=== PATIENT | male | born 1960 | race Caucasian/White ===

== ENCOUNTER 2016-05-08 05:46 | Emergency (ER) | payer OTHER ==
--- NOTE | 2016-05-08 06:35 | ED CLINICAL REPORT ---
Clinical Report - Physicians/Mid Levels [facility] [address] [place] [address] 05/08/2016 5:49 Patient: DANITZA CHAUHAN Time Seen: 06:01; initial patient contact. Arrived- By ambulance. Historian- patient. HISTORY OF PRESENT ILLNESS Chief Complaint: "FLU". This started about 5 days ago and is still present. No fever, difficulty breathing, chest discomfort, nausea or vomiting. No diarrhea or sputum production. He has had a cough, sinus drainage, nasal congestion, a sore throat and chills. He has had muscle aches and a nasal discharge. No known contact with a sick individual. Similar symptoms previously: None. Recent medical care: Not recently seen/assessed. REVIEW OF SYSTEMS The patient has had fatigue and sinus pain. All systems otherwise negative, except as recorded above. PAST HISTORY Arthritis. Hepatitis. Cancer. Depression. Anxiety Reaction. SURGERIES: Endoscopy. Surgery for CA. SOCIAL HISTORY Current every day smoker. History of drug use: marijuana. ADDITIONAL NOTES The nursing notes have been reviewed with agreement regarding the chief complaint, PMH and patient medications and allergies. PHYSICAL EXAM Vital Signs: 05/08/2016 05:54 BP: 135/74. HR: 85. RR: 17. O2 saturation: 96%. Temp: 98.8 F. Pain level now: 8/10. Have been reviewed as normal. Appearance: Alert. No acute distress. Eyes: Eyes normal inspection. ENT: Mild generalized pharyngeal erythema with right tonsillar swelling and left tonsillar swelling. No muffled or hoarse voice. Neck: Normal inspection. Neck supple. CVS: Normal heart rate and rhythm. Heart sounds normal. Respiratory: No respiratory distress. Breath sounds normal. Abdomen: Soft and nontender. Skin: Normal skin color. No rash. Extremities: No calf tenderness. No lower extremity edema. Neuro: Oriented X 3. LABS, X-RAYS, AND EKG Laboratory Tests: Culture, Strep Screen: (ZULEMA: 05/08/2016 06:00) ( MsgRcvd 05/08/2016 06:15) Final results Test Result Flag Units (Reference) RAPID STREP SCREEN - THROAT CALLED TO: CURLY ED RN -- DATE: 05/08/16 POSITIVE SCREEN: RAPID STREP SCREEN: POSITIVE FOR GROUP A STREP Rapid Influenza Screen: (ZULEMA: 05/08/2016 06:00) ( MsgRcvd 05/08/2016 06:19) Final results SPECIMEN DESCRIPTION: ... Test Result Flag Units (Reference) RAPID INFLUENZA SCREEN CALLED TO: NA -- DATE: 05/08/16 INFLUENZA A: NEGATIVE SCREEN FOR INFLUENZA A INFLUENZA B: NEGATIVE SCREEN FOR INFLUENZA B . PROGRESS AND PROCEDURES Disposition: Discharged home in good condition. Condition: good. CLINICAL IMPRESSION Acute streptococcal pharyngitis INSTRUCTIONS Alternate Tylenol (Acetaminophen) or Motrin (Ibuprofen) for fever. Take according to label instructions. Your Current Medications: CONTINUE TAKING THE FOLLOWING MEDICATIONS: Acitretin Oral : Capsule 10 mg, 1 capsule daily. Ibuprofen Oral. Meloxicam Oral : Tablet 15 mg, 1 tablet daily. Naproxen Oral. Omeprazole Oral : 20 mg daily. Sertraline HCl Oral : 150mg daily. Prescription Medications: Penicillin V 500 mg: take 1 tab orally every 12 hours for 10 days. Dispense twenty (20). No refills. Follow-up: Follow up with your doctor in about two days. Call for an appointment. Screening today revealed the patient's blood pressure to be in the pre-hypertensive range. The patient should follow up with a primary care provider for blood pressure management. (Electronically signed by Bib Cooper Dr. 05/08/2016 6:48)
--- NOTE | 2016-05-08 06:35 | ED NURSING NOTES ---
Clinical Report - Nurses [facility] [address] [place] [address] 05/08/2016 5:49 Patient: DANITZA CHAUHAN TRIAGE Triage time 05:54. Acuity: LEVEL 3. Chief Complaint: MUSCLE ACHES, HEADACHE and COUGH. 06:07. Alert. SEPSIS SCREEN: Sepsis Screen. Negative (no infection suspected/documented). RICK COMA SCORE: Rick Coma Scale: 14- eyes open to voice (3); best verbal response- oriented x 4 (5); best motor response- obeys commands (6). --06:07 Gregorio Nuñez R.N. 05:54 05/08/16. BP: 135/74. HR: 85. RR: 17. O2 saturation: 96%. Temp: 98.8 F (oral). Pain level now: 810. --06:07 Gregorio Nuñez R.N. Weight: 104.3 kg estimated. Height/Length: 70.5 inches Per Patient. BMI: 32.6. --05:57 Gregorio Nuñez R.N. Medications Omeprazole Oral 20 mg, daily. --06:01 Gregorio Nuñez R.N. Meloxicam Oral (Tablet 15 mg) 1 tablet, daily. --06:01 Gregorio Nuñez R.N. Naproxen Oral. --06:01 Gregorio Nuñez R.N. Ibuprofen Oral. --06:02 Gregorio Nuñez R.N. Sertraline HCl Oral 150mg , daily. --06:02 Gregorio Nuñez R.N. Acitretin Oral (Capsule 10 mg) 1 capsule, daily. --06:03 Gregorio Nuñez R.N. Allergies No Known Drug Allergy. --06:03 Gregorio Nuñez R.N. Medication/allergy information source: the patient and patient's pill bottles. --06:07 Gregorio Nuñez R.N. History Arrived by private vehicle. Historian: patient. Unaccompanied. ( Patient masked on arrival). Onset. (4 - 5 days ago). PAST MEDICAL HX: Immunizations: up-to-date. SOCIAL HX: Current every day light tobacco smoker- less than 1/2 a pack per day. Occasional alcohol use. History of occasional drug use: marijuana. No infectious disease exposure. ABUSE ASSESSMENT: No report of abuse. FALL RISK ASSESSMENT: Fall risk assessment completed. No fall risk identified. NUTRITIONAL RISK ASSESSMENT: The nutritional risk assessment revealed no deficiencies. FUNCTIONAL ASSESSMENT: Functional assessment: no impairments noted. LEARNING NEEDS ASSESSMENT: The learning needs assessment revealed no barriers. SKIN INTEGRITY ASSESSMENT: Skin integrity risk assessment completed. No skin integrity risk identified. --06:07 Gregorio Nuñez R.N. PROBLEMS: Arthritis. Hepatitis. Cancer. Depression. Anxiety Reaction. --06:06 Gregorio Nuñez R.N. ADDITIONAL SURGERIES: Endoscopy. Surgery for CA . --06:06 Gregorio Nuñez R.N. Interventions ID band on patient. To treatment room. --06:07 Gregorio Nuñez R.N. PHYSICAL ASSESSMENT 05:59. To room via stretcher. Patient gowned. GENERAL / NEURO / PSYCH: Alert. Oriented X 4. HEENT: No facial asymmetry noted. Mucous membranes are pink. RESPIRATORY: Respirations not labored. SKIN: Skin intact. Skin is warm and dry. Normal skin turgor. --05:59 Gregorio Nuñez R.N. NURSING PROGRESS NOTES 05:55. Patient ID band checked for patient name and birthdate: patient confirmed. Flu swab obtained via nasal pharyngeal swab. Labeled in the presence of the patient and sent to lab (by Dr. Cooper). Patient ID band checked for patient name and birthdate: patient confirmed. Throat swab obtained for rapid strep; labeled in the presence of the patient and sent to lab (by Dr. Cooper). --05:58 Gregorio Nuñez R.N. 05:58. Head of bed elevated. Two patient identifiers checked. Call light placed in reach. Side rails up x 2. Bed placed in lowest position. Brakes of bed on. Patient ready for evaluation- chart flagged. --05:58 Gregorio Nuñez R.N. 07:00 05/08/2016 Ibuprofen PO 600 mg given. Allergies verified and confirmed 5 rights. --07:13 Gregorio Nuñez R.N. DISPOSITION / DISCHARGE 06:49. Condition at departure: stable. ( Patient is upset because we don't have a way for him to get home pt stated Ryan pays for a taxi). No learning barriers present. Discharge instructions provided and reviewed with the patient. Reviewed medication(s) side effects, precautions, dosing and course information. Prescription(s) given to the patient. Patient verbalized understanding. Written instructions provided in Setswana. The patient was discharged home and unaccompanied at time of discharge. He left the Emergency Department ambulatory. FALL RISK ASSESSMENT: Fall risk assessment completed. No fall risk identified. --06:49 Gregorio Nuñez R.N. 06:42 05/08/16. BP: 140/78. HR: 90. RR: 16. O2 saturation: 96% on room air. Pain level now: 7/10. --06:49 Gregorio Nuñez R.N. 06:49 Patient using ED phone to call for a ride. --06:50 Gregorio Nuñez R.N. Departure time: 07:04. --07:14 Gregorio Nuñez R.N. Locked/Released at 05/10/2016 10:32 by Eva Finn R.N.
--- NOTE | 2016-05-08 06:35 | ED ORDER SUMMARY ---
..... Patient: DANITZA CHAUHAN OrderSheet [facility] VisitID: [id number] [place] [address] 55y, M Registration Date/Time: 05/08/2016 ORDER SHEET Weight: 104.3 kg (estimated) Allergies: No Known Drug Allergy GENERAL ORDERS: Rapid Influenza Screen (Nasal Pharyngeal) (...) Urgent (05:59 05/08/2016 Halle Paul) (6[facility]) Culture, Strep Screen Urgent (05:59 05/08/2016 Halle Paul) (6:02 [facility] Wildlife Photographer) MEDICATION ORDERS: Ibuprofen PO 600 mg (NOW) (07:11 05/08/2016 Dee RRenny verbal order read back to Halle Paul) (7:13 Dee RRenny) IV FLUIDS: ORDER SHEET NOTES: [Electronically signed by Bib Cooper Dr. (06:48 05/08/2016)] [Electronically signed by Eva Finn R.N. (10:32 05/10/2016)] [Electronically locked/signed by Eva Finn R.N. (10:32 05/10/2016)]
--- NOTE | 2016-05-08 06:35 | ED ORDER SUMMARY ---
..... Patient: DANITZA CHAUHAN OrderSheet [facility] VisitID: [id number] [place] [address] 55y, M Registration Date/Time: 05/08/2016 ORDER SHEET Weight: 104.3 kg (estimated) Allergies: No Known Drug Allergy GENERAL ORDERS: Rapid Influenza Screen (Nasal Pharyngeal) (...) Urgent (05:59 05/08/2016 Halle Paul) ([facility]) Culture, Strep Screen Urgent (05:59 05/08/2016 Halle Paul) (6:02 [facility] Manager Of International) MEDICATION ORDERS: Ibuprofen PO 600 mg (NOW) (07:11 05/08/2016 Dee RRenny verbal order read back to Halle Paul) (7:13 Dee RRenny) IV FLUIDS: ORDER SHEET NOTES: [Electronically signed by Bib Cooper Dr. (06:48 05/08/2016)] [Electronically signed by Eva Finn R.N. (10:32 05/10/2016)] [Electronically locked/signed by Eva Finn R.N. (10:32 05/10/2016)]
--- NOTE | 2016-05-10 10:33 | ED MED RECONCILIATION SUMMARY ---
Patient: DANITZA CHAUHAN Medication Reconciliation Report [facility] VisitID: [id number] [address] [place] [address] 55y, M Registration Date/Time: 05/08/2016 Weight: 104.3 kg Height/Length: 60 in. BMI: 32.6 ALLERGIES: No Known Drug Allergy The patient's Home Medications are listed below: CONTINUE TAKING THE FOLLOWING MEDICATIONS: Acitretin Oral (10 mg) 1 capsule, daily Ibuprofen Oral Meloxicam Oral (15 mg) 1 tablet, daily Naproxen Oral Omeprazole Oral 20 mg, daily Sertraline HCl Oral 150mg , daily The source(s) of the original Home Medication information: patient patient's pill bottles The following Medications were given to the patient in the Emergency Department: Ibuprofen [PO] PO 600 mg, administered: 05/08/2016 7:00:00 AM The following Medications were prescribed to the patient: Penicillin V 500 mg: take 1 tab orally every 12 hours for 10 days. Dispense twenty (20). No refills. -- Bib Cooper Dr.
--- NOTE | 2016-05-10 10:33 | ED MED RECONCILIATION SUMMARY ---
Patient: DANITZA CHAUHAN Medication Reconciliation Report [facility] VisitID: [id number] [address] [place] [address] 55y, M Registration Date/Time: 05/08/2016 Weight: 104.3 kg Height/Length: 60 in. BMI: 32.6 ALLERGIES: No Known Drug Allergy The patient's Home Medications are listed below: CONTINUE TAKING THE FOLLOWING MEDICATIONS: Acitretin Oral (10 mg) 1 capsule, daily Ibuprofen Oral Meloxicam Oral (15 mg) 1 tablet, daily Naproxen Oral Omeprazole Oral 20 mg, daily Sertraline HCl Oral 150mg , daily The source(s) of the original Home Medication information: patient patient's pill bottles The following Medications were given to the patient in the Emergency Department: Ibuprofen [PO] PO 600 mg, administered: 05/08/2016 7:00:00 AM The following Medications were prescribed to the patient: Penicillin V 500 mg: take 1 tab orally every 12 hours for 10 days. Dispense twenty (20). No refills. -- Bib Cooper Dr.
--- NOTE | 2016-05-10 10:33 | ED MAR SUMMARY ---
..... Medication Administration Record [facility] [address] [place] [address] Patient: DANITZA CHAUHAN Visit ID: [id number] 55y, M Weight: 104.3 kg Height/Length: 70.5 in BMI: 32.6 ALLERGIES: No Known Drug Allergy Given 07:00 05/08/2016 Gregorio Nuñez RBradenNBraden Medication Administered: IBUPROFEN [PO], Dose: 600 mg PO. Medication Ordered: Ibuprofen PO 600 mg (NOW).
--- NOTE | 2016-05-10 10:33 | ED DISCHARGE INSTRUCTIONS ---
Patient: GISSEL DANITZA General Instructions [facility] VisitID: [id number] [place] [address] 55y, M Registration Date/Time: 05/08/2016 Acute streptococcal pharyngitis INSTRUCTIONS Alternate Tylenol (Acetaminophen) or Motrin (Ibuprofen) for fever. Take according to label instructions. Your Current Medications: CONTINUE TAKING THE FOLLOWING MEDICATIONS: Acitretin Oral : Capsule 10 mg, 1 capsule daily. Ibuprofen Oral. Meloxicam Oral : Tablet 15 mg, 1 tablet daily. Naproxen Oral. Omeprazole Oral : 20 mg daily. Sertraline HCl Oral : 150mg daily. Prescription Medications: Penicillin V 500 mg: take 1 tab orally every 12 hours for 10 days. Dispense twenty (20). No refills. Follow-up: Follow up with your doctor in about two days. Call for an appointment. Screening today revealed the patient's blood pressure to be in the pre-hypertensive range. The patient should follow up with a primary care provider for blood pressure management. ADDITIONAL INFORMATION Pharyngitis: Strep [Confirmed] Your test for strep throat was positive. Strep throat is a contagious illness. It is spread by coughing, kissing or by touching others after touching your mouth or nose. Symptoms include throat pain which is worse with swallowing, aching all over, headache and fever. You will be treated with an antibiotic which should make you start to feel better within 1-2 days. Home Care: Rest at home and drink plenty of fluids to avoid dehydration. No school or work for the first two days on antibiotics. You will not be contagious after this time and if you are feeling better, you can return to school or work. Take your antibiotics for a full 10 days, even if you feel better after the first few days of treatment. This is very important to prevent heart or kidney disease that can result as a complication of untreated strep throat infection. Children: Use acetaminophen (Tylenol) for fever, fussiness or discomfort. In infants over six months of age, you may use ibuprofen (Children's Motrin) instead of Tylenol. [NOTE: If your child has chronic liver or kidney disease or ever had a stomach ulcer or GI bleeding, talk with your doctor before using these medicines.] (Aspirin should never be used in anyone under 18 years of age who is ill with a fever. It may cause severe liver damage.)Adults: You may use acetaminophen (Tylenol) or ibuprofen (Motrin, Advil) to control pain or fever, unless another medicine was prescribed for this. [NOTE: If you have chronic liver or kidney disease or ever had a stomach ulcer or GI bleeding, talk with your doctor before using these medicines.] Throat lozenges or sprays (Chloraseptic and others) will reduce pain. Gargling with warm salt water will also reduce throat pain. Dissolve 1/2 teaspoon of salt in 1 glass of warm water. This is especially useful just before meals. Follow Up with your doctor or as directed by our staff if you are not improving over the next week. Get Prompt Medical Attention if any of the following occur: Fever of 100.4F (38C) oral or higher, not better with fever medication New or worsening ear pain, sinus pain or headache Painful lumps in the back of your neck Unable to swallow liquids or open your mouth wide due to throat pain Trouble breathing or noisy breathing Muffled voice New rash Fever Control (Adult) A fever is a natural reaction of the body to an illness. In most cases, the temperature itself is not harmful. It actually helps the body fight infections. A fever does not need to be treated unless you feel very uncomfortable. Home Care If you feel warm, check your temperature. If you feel very uncomfortable and your temperature is at or higher than 100.4F (38C) oral, you may take acetaminophen (Tylenol) every 4 to 6 hours. If you cant take or keep down oral medicine, ask your pharmacist for Tylenol suppositories, which you can get without a prescription. If the fever does not respond to acetaminophen within 1 hour, take ibuprofen (Advil or Motrin). If this works, keep taking the ibuprofen every 6 to 8 hours. Note: If you have chronic liver or kidney disease or ever had a stomach ulcer or GI bleeding, talk with your doctor before using these medications. If either medication alone does not keep the fever down, you may alternate the two medicines every 3 to 4 hours, only if your healthcare provider has instructed you to do so. For example, take Motrin then wait 3 hours, take Tylenol then wait 3 hours, take Motrin, and so on. Follow your healthcare providers instructions exactly. Clothing: Keep clothing light because excess body heat is lost through the skin. The fever will go up if you wear extra layers or wrap in blankets. Fluids: Fever causes the body to lose water through evaporation. Drink plenty of fluids such as water, juice, clear sodas, elizabeth sabrina, or lemonade. Do not use aspirin in anyone under 18 years of age who is ill with a fever. It can cause severe liver damage. Follow Up with your doctor or as advised by our staff if you do not get better after 48 hours. Get Prompt Medical Attention if any of the following occur: Fever does not get better after taking fever medication Fast or difficult breathing Earache, sinus pain, stiff or painful neck, headache, repeated diarrhea or vomiting You feel unusually irritable, drowsy, or confused A rash appears You feel weak or dizzy, or that you might faint Penicillin V Potassium Oral tablet What is this medicine? PENICILLIN V (pen i SILL in V) is a penicillin antibiotic. It is used to treat certain kinds of bacterial infections. It will not work for colds, flu, or other viral infections. How should I use this medicine? Take this medicine by mouth with a full glass of water. Follow the directions on the prescription label. Take your medicine at regular intervals. Do not take your medicine more often than directed. Take all of your medicine as directed even if you think your are better. Do not skip doses or stop your medicine early. Talk to your check examiner regarding the use of this medicine in children. While this drug may be prescribed for selected conditions, precautions do apply. What side effects may I notice from receiving this medicine? Side effects that you should report to your doctor or health day care home mother as soon as possible: allergic reactions like skin rash or hives, swelling of the face, lips, or tongue breathing problems fever new symptoms of infection redness, blistering, peeling or loosening of the skin, including inside the mouth unusually weak or tired Side effects that usually do not require medical attention (report to your doctor or health day care home mother if they continue or are bothersome): diarrhea headache nausea, vomiting sore mouth or tongue stomach upset What may interact with this medicine? control pills methotrexate other antibiotics probenecid some vaccines What if I miss a dose? If you miss a dose, take it as soon as you can. If it is almost time for your next dose, take only that dose. Do not take double or extra doses. Where should I keep my medicine? Keep out of the reach of children. Store at room temperature between 15 and 30 degrees C (59 and 86 degrees F). Keep container tightly closed. Throw away any unused medicine after the expiration date. What should I tell my health care provider before I take this medicine? They need to know if you have any of these conditions: asthma bowel disease, like colitis eczema kidney disease an unusual or allergic reaction to penicillin, cephalosporins, other antibiotics or medicines, foods, tartrazine or other dyes, or preservatives or trying to get breast-feeding What should I watch for while using this medicine? Tell your doctor or health day care home mother if your symptoms do not improve. Do not treat diarrhea with over the counter products. Contact your doctor if you have diarrhea that lasts more than 2 days or if it is severe and watery. If you have diabetes, you may get a false-positive result for sugar in your urine. Check with your doctor or health day care home mother. control pills may not work properly while you are taking this medicine. Talk to your doctor about using an extra method of control. You have been given the following additional information: Pharyngitis, Strep (Confirmed) Fever Control (Adult) Penicillin V Potassium Oral tablet (Electronically signed by Bib Cooper Dr. 05/08/2016 6:48)
--- NOTE | 2016-05-10 10:33 | ED DISCHARGE INSTRUCTIONS ---
Patient: GISSEL DANITZA General Instructions [facility] VisitID: [id number] [place] [address] 55y, M Registration Date/Time: 05/08/2016 Acute streptococcal pharyngitis INSTRUCTIONS Alternate Tylenol (Acetaminophen) or Motrin (Ibuprofen) for fever. Take according to label instructions. Your Current Medications: CONTINUE TAKING THE FOLLOWING MEDICATIONS: Acitretin Oral : Capsule 10 mg, 1 capsule daily. Ibuprofen Oral. Meloxicam Oral : Tablet 15 mg, 1 tablet daily. Naproxen Oral. Omeprazole Oral : 20 mg daily. Sertraline HCl Oral : 150mg daily. Prescription Medications: Penicillin V 500 mg: take 1 tab orally every 12 hours for 10 days. Dispense twenty (20). No refills. Follow-up: Follow up with your doctor in about two days. Call for an appointment. Screening today revealed the patient's blood pressure to be in the pre-hypertensive range. The patient should follow up with a primary care provider for blood pressure management. ADDITIONAL INFORMATION Pharyngitis: Strep [Confirmed] Your test for strep throat was positive. Strep throat is a contagious illness. It is spread by coughing, kissing or by touching others after touching your mouth or nose. Symptoms include throat pain which is worse with swallowing, aching all over, headache and fever. You will be treated with an antibiotic which should make you start to feel better within 1-2 days. Home Care: Rest at home and drink plenty of fluids to avoid dehydration. No school or work for the first two days on antibiotics. You will not be contagious after this time and if you are feeling better, you can return to school or work. Take your antibiotics for a full 10 days, even if you feel better after the first few days of treatment. This is very important to prevent heart or kidney disease that can result as a complication of untreated strep throat infection. Children: Use acetaminophen (Tylenol) for fever, fussiness or discomfort. In infants over six months of age, you may use ibuprofen (Children's Motrin) instead of Tylenol. [NOTE: If your child has chronic liver or kidney disease or ever had a stomach ulcer or GI bleeding, talk with your doctor before using these medicines.] (Aspirin should never be used in anyone under 18 years of age who is ill with a fever. It may cause severe liver damage.)Adults: You may use acetaminophen (Tylenol) or ibuprofen (Motrin, Advil) to control pain or fever, unless another medicine was prescribed for this. [NOTE: If you have chronic liver or kidney disease or ever had a stomach ulcer or GI bleeding, talk with your doctor before using these medicines.] Throat lozenges or sprays (Chloraseptic and others) will reduce pain. Gargling with warm salt water will also reduce throat pain. Dissolve 1/2 teaspoon of salt in 1 glass of warm water. This is especially useful just before meals. Follow Up with your doctor or as directed by our staff if you are not improving over the next week. Get Prompt Medical Attention if any of the following occur: Fever of 100.4F (38C) oral or higher, not better with fever medication New or worsening ear pain, sinus pain or headache Painful lumps in the back of your neck Unable to swallow liquids or open your mouth wide due to throat pain Trouble breathing or noisy breathing Muffled voice New rash Fever Control (Adult) A fever is a natural reaction of the body to an illness. In most cases, the temperature itself is not harmful. It actually helps the body fight infections. A fever does not need to be treated unless you feel very uncomfortable. Home Care If you feel warm, check your temperature. If you feel very uncomfortable and your temperature is at or higher than 100.4F (38C) oral, you may take acetaminophen (Tylenol) every 4 to 6 hours. If you cant take or keep down oral medicine, ask your pharmacist for Tylenol suppositories, which you can get without a prescription. If the fever does not respond to acetaminophen within 1 hour, take ibuprofen (Advil or Motrin). If this works, keep taking the ibuprofen every 6 to 8 hours. Note: If you have chronic liver or kidney disease or ever had a stomach ulcer or GI bleeding, talk with your doctor before using these medications. If either medication alone does not keep the fever down, you may alternate the two medicines every 3 to 4 hours, only if your healthcare provider has instructed you to do so. For example, take Motrin then wait 3 hours, take Tylenol then wait 3 hours, take Motrin, and so on. Follow your healthcare providers instructions exactly. Clothing: Keep clothing light because excess body heat is lost through the skin. The fever will go up if you wear extra layers or wrap in blankets. Fluids: Fever causes the body to lose water through evaporation. Drink plenty of fluids such as water, juice, clear sodas, elizabeth sabrina, or lemonade. Do not use aspirin in anyone under 18 years of age who is ill with a fever. It can cause severe liver damage. Follow Up with your doctor or as advised by our staff if you do not get better after 48 hours. Get Prompt Medical Attention if any of the following occur: Fever does not get better after taking fever medication Fast or difficult breathing Earache, sinus pain, stiff or painful neck, headache, repeated diarrhea or vomiting You feel unusually irritable, drowsy, or confused A rash appears You feel weak or dizzy, or that you might faint Penicillin V Potassium Oral tablet What is this medicine? PENICILLIN V (pen i SILL in V) is a penicillin antibiotic. It is used to treat certain kinds of bacterial infections. It will not work for colds, flu, or other viral infections. How should I use this medicine? Take this medicine by mouth with a full glass of water. Follow the directions on the prescription label. Take your medicine at regular intervals. Do not take your medicine more often than directed. Take all of your medicine as directed even if you think your are better. Do not skip doses or stop your medicine early. Talk to your ux consultant regarding the use of this medicine in children. While this drug may be prescribed for selected conditions, precautions do apply. What side effects may I notice from receiving this medicine? Side effects that you should report to your doctor or health healthcare economics manager as soon as possible: allergic reactions like skin rash or hives, swelling of the face, lips, or tongue breathing problems fever new symptoms of infection redness, blistering, peeling or loosening of the skin, including inside the mouth unusually weak or tired Side effects that usually do not require medical attention (report to your doctor or health healthcare economics manager if they continue or are bothersome): diarrhea headache nausea, vomiting sore mouth or tongue stomach upset What may interact with this medicine? control pills methotrexate other antibiotics probenecid some vaccines What if I miss a dose? If you miss a dose, take it as soon as you can. If it is almost time for your next dose, take only that dose. Do not take double or extra doses. Where should I keep my medicine? Keep out of the reach of children. Store at room temperature between 15 and 30 degrees C (59 and 86 degrees F). Keep container tightly closed. Throw away any unused medicine after the expiration date. What should I tell my health care provider before I take this medicine? They need to know if you have any of these conditions: asthma bowel disease, like colitis eczema kidney disease an unusual or allergic reaction to penicillin, cephalosporins, other antibiotics or medicines, foods, tartrazine or other dyes, or preservatives or trying to get breast-feeding What should I watch for while using this medicine? Tell your doctor or health healthcare economics manager if your symptoms do not improve. Do not treat diarrhea with over the counter products. Contact your doctor if you have diarrhea that lasts more than 2 days or if it is severe and watery. If you have diabetes, you may get a false-positive result for sugar in your urine. Check with your doctor or health healthcare economics manager. control pills may not work properly while you are taking this medicine. Talk to your doctor about using an extra method of control. You have been given the following additional information: Pharyngitis, Strep (Confirmed) Fever Control (Adult) Penicillin V Potassium Oral tablet (Electronically signed by Bib Cooper Dr. 05/08/2016 6:48)
--- NOTE | 2016-05-10 10:33 | ED MAR SUMMARY ---
..... Medication Administration Record [facility] [address] [place] [address] Patient: DANITZA CHAUHAN Visit ID: [id number] 55y, M Weight: 104.3 kg Height/Length: 70.5 in BMI: 32.6 ALLERGIES: No Known Drug Allergy Given 07:00 05/08/2016 Gregorio Nuñez RBradenNBraden Medication Administered: IBUPROFEN [PO], Dose: 600 mg PO. Medication Ordered: Ibuprofen PO 600 mg (NOW).
== END 2016-05-08 07:04 | disposition home or self-care (01) ==
LOC: ED SRH 05:46
DX: J02.0 Streptococcal pharyngitis (principal); F17.210 Nicotine dependence, cigarettes, uncomplicated
CPT/HCPCS: 90154; 91400